=== PATIENT | male | born 1960 | race Caucasian/White ===

== ENCOUNTER 2022-12-10 12:04 | Outpatient (CLI) | payer BC ==
[2022-12-10] MEDS ORDERED: Iopamidol 370 76% 100 ML VIAL ONE (12:30)
== END 2022-12-10 12:05 | disposition home or self-care (01) ==
LOC: CSHCT 12:04
PROVIDERS: ATTEND Psychiatry & Neurology Neurology
DX: G89.29 Other chronic pain (principal); J32.9 Chronic sinusitis, unspecified
CPT/HCPCS: 70496

== ENCOUNTER 2024-04-27 10:32 | Outpatient (CLI) | payer BC ==
[~2024-04-27 10:32] MED LIST: Magnevist 469MG/ML 20 ML VIAL ONE
== END 2024-04-27 10:33 | disposition home or self-care (01) ==
LOC: CSHMRI 10:32
PROVIDERS: ATTEND Urology
DX: R97.20 Elevated prostate specific antigen [PSA] (principal)
CPT/HCPCS: 72197